=== PATIENT | male | born 1990 | race African-American/Black ===

== ENCOUNTER 2018-06-21 17:27 | Emergency (ER) | payer SELFPAY ==
[2018-06-21] MEDS ORDERED: Cyclobenzaprine 10 MG TAB ONE (18:09)
[2018-06-21] MEDS ORDERED: Ibuprofen 800 MG TAB ONE (18:09)
== END 2018-06-21 18:27 | disposition home or self-care (01) ==
LOC: MADERS 17:27
DX: S39.012A Strain of muscle, fascia and tendon of lower back, initial encounter (principal); R10.9 Unspecified abdominal pain; V49.9XXA Car occupant (driver) (passenger) injured in unspecified traffic accident, initial encounter
CPT/HCPCS: 99283